=== PATIENT | male | born 1945 | race Caucasian/White ===

== ENCOUNTER 2017-04-11 15:25 | Emergency (ER) | payer OTHER ==
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
[2017-04-11 16:22] LABS: % BASOPHILS 0.1 % (0.0-2.0); % EOSINOPHILS 1.1 % (0.0-5.0); % LYMPHOCYTES 9.9 % (20.0-50.0); % MONOCYTES 4.9 % (2.0-10.0); HEMATOCRIT 37.5 % (41.0-60); HEMOGLOBIN 13.1 gm/dL (12-16); MEAN CELL VOLUME 95.5 fl (80-99); MEAN CORPUSCULAR HEMOGLOBIN 33.2 pg (27.0-31.0); MEAN CORPUSCULAR HGB CONC 34.8 pg (28.0-36.0); MEAN PLATELET VOLUME 7.3 fl; NEUTROPHILE ABSOLUTE 9.8 Th/cmm (1.8-8.0); PLATELET COUNT 171 Th/cmm (150-400); RED BLOOD COUNT 3.93 Mil/cmm (3.80-5.80); RED CELL DISTRIBUTION WIDTH 12.4 % (11.5-20.0); WHITE BLOOD COUNT 11.7 Th/cmm (4.8-10.8)
[2017-04-11 16:37] LABS: PROTHROMBIN TIME (TEST) 10.4 SECONDS (9.5-11.5)
[2017-04-11] MEDS ORDERED: Sodium Chloride 0.9% 1,000 ML IV ONE (18:55)
[2017-04-11 19:03] LABS: ALB/GLOB RATIO 1.4 (1.0-1.8); ALKALINE PHOSPHATASE 85 U/L (34-104); ANION GAP 13.8 (7.0-16.0); BILIRUBIN,TOTAL 0.5 mg/dL (0.3-1.0); BUN - UREA NITROGEN 28 mg/dL (7-25); BUN/CREATININE RATIO 25.5; CALCIUM SERUM 9.3 mg/dL (8.6-10.3); CARBON DIOXIDE 21.4 mEq/L (21.0-31.0); CHLORIDE 105 mEq/L (98-107); CHOLESTEROL 170 mg/dL (<200); CREATININE - SERUM 1.1 mg/dL (0.7-1.3); GLUCOSE 170 mg/dL (70-105); POTASSIUM SERUM 4.2 mEq/L (3.5-5.1); SGOT 64 U/L (13-39); SGPT/ALT 52 U/L (7-52); SODIUM SERUM 136 mEq/L (136-145); TRIGLYCERIDES 521 mg/dL (<150)
[2017-04-11] MEDS ORDERED: Morphine Sulfate 2 mg/mL 1mL Syr ONE (19:27)
--- NOTE | 2017-04-12 07:09 | Diagnostic Imaging Report ---
Portable chest x-ray Time: 1721 hours History: Chest pain Allowing for portable technique the heart size is normal. No focal pulmonary parenchymal processes. No hilar or mediastinal abnormalities. Impression: No acute abnormalities.
--- NOTE | 2017-04-12 07:12 | Diagnostic Imaging Report ---
Exam: Pelvic x-ray HISTORY: Trauma. Findings: Single frontal examination of pelvis was reviewed. The study demonstrates no evidence for acute fracture or dislocation. Degenerative changes of hip joints bilaterally with narrowing of joint space appreciated. The sacroiliac joints and pubic symphysis are intact. IMPRESSION: essentially unremarkable examination of the pelvis, degenerative changes narrowing of the hip joint spaces bilaterally.
--- NOTE | 2017-04-12 07:13 | Diagnostic Imaging Report ---
Exam: Left shoulder. HISTORY: Trauma. Multiple views of the left shoulder joint reviewed. The study demonstrates no evidence for acute fracture dislocation. Degenerative osteoarthritic changes are noted. The acromioclavicular joint is intact. IMPRESSION: Degenerative changes left shoulder joint no evidence of fracture or dislocation.
--- NOTE | 2017-04-12 07:18 | Diagnostic Imaging Report ---
CT scan cervical spine History: Trauma Total DLP equals 804 CTDI equals 40.0 Axial sections were obtained through the cervical spine region. Additional sagittal and coronal reformatted images are provided. No focal bony lesions are seen. Specifically, no fractures are identified. There is limited visualization of the margins of the cervical spinal cord. Degenerative facet changes are noted throughout with facet arthropathy and osteophytic spurring. There is no evidence of spinal stenosis. There is evidence for anterior spurring and bridging C5-C6 C6-7 vertebral bodies. No obvious extradural soft tissue abnormalities are seen. The prevertebral soft tissues appear normal. Impression: No acute abnormalities, degenerative osteophytic changes. Degenerative osteoarthropathy with facet joint degenerative changes.
--- NOTE | 2017-04-12 07:19 | Diagnostic Imaging Report ---
CT scan of the brain without intravenous contrast HISTORY: Trauma Total DLP equals 804 CTDI equals 40.0 Axial sections were obtained from the base of the skull to the vertex. There is prominence/enlargement of the ventricular system size. Associated enlargement of cerebral sulci and subarachnoid cisterns. Findings are consistent with changes of generalized cerebral atrophy. No acute parenchymal abnormalities. No acute cerebral hemorrhage. Hypodensity is seen within the supratentorial white matter regions without mass effect. The findings may be associated with chronic small vessel ischemic disease. No extra-axial masses or abnormal fluid collections. IMPRESSION: 1. No acute abnormalities 2. Cerebral atrophy 3. Supratentorial white matter changes that may reflect chronic small vessel ischemic disease
--- NOTE | 2017-04-12 07:21 | Diagnostic Imaging Report ---
Exam: CT examination abdomen pelvis HISTORY trauma Total DLP equals 612 CTDI equals 11.3 Findings: Multiple contiguous thin section of the abdomen pelvis obtained from lower thorax to pubic symphysis without the administration of intravenous contrast material. No prior studies available comparison. The study demonstrates some normal aeration of lung parenchyma the bases The liver and spleen are normal. The pancreas is intact. The kidneys demonstrate no evidence of obstructive uropathy or nephrolithiasis. The left kidney appears to be atrophic. The gallbladder is contracted. No free fluid is noted. There is no evidence of diverticular disease of diverticulitis. The prostate gland is enlarged impinging the urinary bladder floor. Bony structures demonstrate no evidence for lytic or blastic changes. IMPRESSION: Essentially unremarkable examination of the abdomen pelvis. Enlarged prostate gland. Atrophic left kidney.
== END 2017-04-11 23:05 | disposition home or self-care (01) ==
LOC: ER 15:25
DX: R55 Syncope and collapse (principal); E78.5 Hyperlipidemia, unspecified; R42 Dizziness and giddiness
CPT/HCPCS: 99285; 96361; 96374; 96375; 93005; 71010; 72170; 73030; 70450; 72125; 74176; 84484; 83880; 36415; 85025; 85610; 82550; 80053; 80061; 87081; 90715; J2270; J1885